=== PATIENT | male | born 1945 | race Caucasian/White ===

== ENCOUNTER 2017-06-18 11:54 | Emergency (ER) | payer OTHER ==
[2017-06-18] MEDS ORDERED: Aspirin 81mg Chewable Tab PO STA (12:09)
[2017-06-18] MEDS ORDERED: Morphine Sulfate 4 mg/mL 1mL Syr IVP STA (12:12)
[2017-06-18] MEDS ORDERED: Morphine Sulfate 4 mg/mL 1mL Syr ONE (12:13)
[2017-06-18 12:21] LABS: % BASOPHILS 3.9 % (0.0-2.0); % EOSINOPHILS 6.6 % (0.0-5.0); % LYMPHOCYTES 9.7 % (20.0-50.0); % MONOCYTES 3.9 % (2.0-10.0); % NEUTROPHILS 75.9 % (40.0-80.0); BASOPHILE ABSOLUTE 0.4 Th/cumm (0-0.2); EOSINOPHILE ABSOLUTE 0.7 Th/cmm (0.1-0.4); HEMATOCRIT 43.4 % (41.0-60); HEMOGLOBIN 14.7 gm/dL (12-16); MEAN CELL VOLUME 88.4 fl (80-99); MEAN PLATELET VOLUME 8.8 fl; MONOCYTE ABSOLUTE 0.4 Th/cmm (0.3-1.0); NEUTROPHILE ABSOLUTE 7.8 Th/cmm (1.8-8.0); PLATELET COUNT 166 Th/cmm (150-400); RED BLOOD COUNT 4.91 Mil/cmm (3.80-5.80); RED CELL DISTRIBUTION WIDTH 13.1 % (11.5-20.0); WHITE BLOOD COUNT 10.3 Th/cmm (4.8-10.8)
[2017-06-18 12:36] LABS: ANION GAP 13.1 (7.0-16.0); BUN - UREA NITROGEN 21 mg/dL (7-25); CALCIUM SERUM 9.7 mg/dL (8.6-10.3); CHLORIDE 104 mEq/L (98-107); CREATININE - SERUM 1.3 mg/dL (0.7-1.3); GLUCOSE 330 mg/dL (70-105); MAGNESIUM 1.7 mg/dL (1.9-2.7); POTASSIUM SERUM 4.1 mEq/L (3.5-5.1); SODIUM SERUM 138 mEq/L (136-145)
--- NOTE | 2017-06-18 12:41 | ED Physician Chart ---
ED Chief Complaint/HPI - Patient Information Date Seen:: 06/18/17 Time Seen:: 12:00 Chief Complaint:: chest pain History of Present Illness:: At 10 to 10:30 AM patient developed left superior chest pain radiating to his left scapula. Pain is nonpleuritic. No diaphoresis or shortness of breath. Pain was 6-7 on a scale 1-10. Patient's had a productive cough for 1 week worse for last 2 days. Allergies:: Allergies Allergy/AdvReac Type Severity Reaction Status Date / Time No Known Allergies Allergy Verified 06/18/17 12:14 Vitals:: Vital Signs - 8 hr 06/18/17 06/18/17 12:05 12:21 Temp 97.8 F HR 109 102 RR 17 BP 206/96 206/92 O2 Sat % 96 Historian:: Patient Review:: Nurse's Note Reviewed ED Review of Systems - Review of Systems General/Constitutional: No fever, No chills Skin: No skin lesions Head: No headache Eyes: No loss of vision ENT: No earache Neck: No neck pain, No swelling Cardio Vascular: Chest pain Pulmonary: No SOB GI: No nausea, No vomiting, No diarrhea G/U: No dysuria Musculoskeletal: No bone or joint pain Endocrine: No polyuria, No polydipsia Psychiatric: No prior psych history, No depression, No anxiety Hematopoietic: No bruising Allergic/Immuno: No urticaria Neurological: No syncope, No focal symptoms ED Past Medical History - Past Medical History Past Medical History: HTN, DM, Dyslipidemia, Other (hyperlipidemia) Family History: Diabetes Melitus, HTN Social History: Non Smoker, No Alcohol, Other (quit smoking 20 years ago) Surgical History: Hernia, other (left eye for being crossed; tonsillectomy) Psychiatricy History: None Medication: Reviewed Family Medical History - Family Member Mother Living Status: Hx Family Congestive Heart Failure: No Hx Family Hypertension: No Hx Family Stroke: Yes Hx Family Diabetes: No Hx Family AIDS: No Hx Family HIV: No Hx Family Hepatitis: No Hx Family Psychiatric Problems: No Hx Family Tuberculosis: No ED Physical Exam - Physical Examination General/Constitutional: Well-developed, well-nourished, Alert Other Gen/Cons comments:: Mild distress Head: Atraumatic Eyes: Lids, conjuctiva normal Skin: Nl inspection ENMT: External ears, nose nl, TM canals nl, Nasal exam nl, Lips, teeth, gums nl Neck: No bruit Respiratory: Nl effort/Exclusion, Clear to Auscultation Cardio Vascular: RRR, No murmur, gallop, rubs GI: No tenderness/rebounding/guarding : No CVA tenderness Extremities: No tenderness or effusion Neuro/Psych: No focal deficits Misc: No paraspinal tenderness ED Labs/Radiology/EKG Results - Lab Results Results: Laboratory Tests 06/18/17 12:15 WBC 10.3 RBC 4.91 Hgb 14.7 Hct 43.4 MCV 88.4 MCH 30.0 MCHC Differential 34.0 RDW 13.1 Plt Count 166 MPV 8.8 Neutrophils % 75.9 Lymphocytes % 9.7 L Monocytes % 3.9 Eosinophils % 6.6 H Basophils % 3.9 H - Radiology Results Results: Chest x-ray negative - EKG Interpretations Rate & Rhythm: sinus tachycardia with a rate of 107 [place]: normal Comments:: [address] elevation in leads [address] depression in leads V2 through V5; recent inferior posterior myocardial infarction ED Assessment - Assessment General Assessment: At [address] Brewster emergency medicine physician at [facility] and then faxed him to [facility]. 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 I then spoke to Dr. Starr at [facility] at 1325 who accepted the patient in transfer. Paramedics were called a couple minutes after that. ED Septic Shock - . Is Septic Shock (SBP<90, OR Lactate>4 mmol\L) present?: No - <6hrs of presentation: Vital Signs: Vital Signs - 8 hr 06/18/17 06/18/17 12:05 12:21 Temp 97.8 F HR 109 102 RR 17 BP 206/96 206/92 O2 Sat % 96 ED Reassessment (Disposition) - Reassessment Reassessment:: Starting at about 1305 patient was pain free Reassessment Condition:: Improved - Diagnosis Diagnosis:: Acute myocardial infarction - Patient Disposition Discharge/Transfer:: Acute Care (other hosp) Condition at Disposition:: Stable, Improved
--- NOTE | 2017-06-18 14:16 | Diagnostic Imaging Report ---
Portable chest x-ray History: Chest pain Allowing for portable technique the heart size is normal. No focal pulmonary parenchymal processes. No hilar or mediastinal abnormalities. Impression: No acute abnormalities.
[2017-06-18 21:50] LABS: A1C % 7.3 % (4.0-6.0)
== END 2017-06-18 13:46 | disposition short-term general hospital (02) ==
LOC: ER 11:54
DX: I21.9 Acute myocardial infarction, unspecified (principal); I10 Essential (primary) hypertension; E11.9 Type 2 diabetes mellitus without complications; E78.5 Hyperlipidemia, unspecified
CPT/HCPCS: 36415-UA; 71045-TC; 80048-TC; 83036-90; 83735-TC; 84484-TC; 85025-TC; 93005; 96374